=== PATIENT | female | born 1975 | race African-American/Black ===

== ENCOUNTER 2021-11-02 07:40 | Outpatient (CLI) | payer MEDICARE, SELFPAY ==
--- NOTE | 2021-11-02 07:46 | ECHO_ITS ---
Patient Info Name: Oralia Deng Age: 45 years : 1975 Gender: Female Ht: 62 in Wt: 207 lbs BSA: 2.07 m2 HR: 68 bpm BP: 121 / 90 mmHg Technical Quality: Good Exam Date: 11/02/2021 8:15 AM Exam Location: [facility] Patient Status: Outpatient Admit Date: 11/02/2021 Staff Ordering Physician: Jhonny Tsang DO Fruit Farmworker: Albert Glover RDCS, RT Attending Provider: Jhonny Tsang DO Referring Physician: Sharan VERDUZCO; Exam Type: CA echo doppler color flow Study Info Indications I34.1 - Nonrheumatic mitral (valve) prolapse Complete two-dimensional, color flow and Doppler transthoracic echocardiogram is performed. Strain analysis performed. Summary 1. Complete two-dimensional, color flow and Doppler transthoracic echocardiogram is performed. 2. Left ventricular chamber dimension is normal. 3. Left ventricular systolic function is normal, estimated at 60-65%. 4. The left ventricular diastolic function is normal. 5. E/e' 8 is minimally elevated. 6. Global longitudinal strain is normal at -18.4%. 7. No mitral valve prolapse. 8. There is trace mitral valve regurgitation. 9. There is trace tricuspid valve regurgitation. 10. No pulmonary hypertension, estimated pulmonary arterial systolic pressure is 31 mmHg. Left Ventricle E/e' 8 is minimally elevated. Global longitudinal strain is normal at -18.4%. Left ventricular chamber dimension is normal. Left ventricular systolic function is normal, estimated at 60-65%. The left ventricular diastolic function is normal. Right Ventricle Right ventricular systolic function is normal and with normal TAPSE 2.7 cm. Right ventricular chamber dimension is normal. Left Atria Left atrial chamber dimension is normal. Right Atria Right atrial chamber dimension is normal. Aortic Valve The aortic valve is trileaflet. There is no aortic valve stenosis. There is no aortic valve regurgitation. Pulmonic Valve There is no pulmonic regurgitation. Mitral Valve No mitral valve prolapse. There is no mitral valve stenosis. There is trace mitral valve regurgitation. Tricuspid Valve There is trace tricuspid valve regurgitation. No pulmonary hypertension, estimated pulmonary arterial systolic pressure is 31 mmHg. Pericardium/Pleural There is no pericardial effusion. Inferior Vena Cava Normal inferior vena cava with >50% collapse upon inspiration consistent with normal right atrial pressure, 5 mmHg. Aorta The aortic root size at the sinus of Valsalva is normal. Left Ventricular Outflow Tract Name Value Normal LVOT 2D LVOT Diameter 2.0 cm LVOT Doppler LVOT Peak Gradient 3 mmHg LVOT Mean Gradient 2 mmHg LVOT VTI 17 cm LVOT VTI/AV VTI Ratio 0.8 LVOT Stroke Volume 56 ml LVOT CO 4.2 l/min LVOT CI 2.0 l/min/m2 Mitral Valve Name
== END 2021-11-02 07:41 | disposition home or self-care (01) ==
LOC: ANHCARD 07:41
PROVIDERS: Visit Provider Internal Medicine Cardiovascular Disease
DX: I34.1 Nonrheumatic mitral (valve) prolapse (principal)
CPT/HCPCS: 93306